=== PATIENT | male | born 1985 | race Caucasian/White ===

== ENCOUNTER 2024-12-05 19:55 | Emergency (ER) | payer OTHER, SELFPAY ==
[2024-12-05 20:07] VITALS: BP 162/98
[2024-12-05] MEDS: AUGMENTIN 875 MG/125 MG 1 TABLET PO (21:36)
[2024-12-05] MEDS: ADACEL 0.5 ML IM (21:36)
--- NOTE | 2024-12-05 22:11 | ED.SKININJ ---
HPI-Injury
General
Chief Complaint: Bite
Source: patient and spouse
Exam Limitations: none
Time Seen by Provider: 12/05/24 20:56
Nursing documentation reviewed up to this point in time: agreed with
History of Present Illness-Injury
Is this injury a work related problem?: No
Is pt an associate of [facility]?: No
Initial Injury comments:
39-year-old male past medical history of diabetes presenting to the emergency department today with concerns of dog bite to the left side of his face.
Past History
Past History
ED Past Medical History: IDDM and Psychiatric (Depression)
Social History
Tobacco: Non-smoker
Alcohol: Occasional
Drug: None
Personal: Single
Employment: Employed
Review of Systems
Review of Systems
Allergies reviewed?: Yes
All Other Systems: ROS reviewed and negative except as documented in HPI and ROS
Phy Exam
Physical Exam
Physical Exam:
GENERAL: Alert , in no apparent distress
EYE: pupils equal and reactive
NECK: Supple, no significant adenopathy.
ENT: o/p clr, mmm.
CARDIAC: Regular rate and rhythm .
LUNGS: Clear breath sounds bilaterally, no acute respiratory distress, no wheezes/rales/rhonchi
ABDOMEN: Soft, without focal tenderness, no r/g, no cvat
NEUROLOGICAL: Alert and oriented, no focal neuro deficits
SKIN: Laceration to the area just above the left upper lip no involvement of the dry mucous membrane does not cross the vermilion border L-shaped 3 cm in total length no foreign body seen warm and dry, skin intact.
MUSCULOSKELETAL: No edema, well perfused.
PSYCH: Normal and appropriate interaction.
Course
Orders/Labs/Results
Orders:
Orders
12/05/24 21:19
Amoxicillin 875 mg/Clav 125 mg [Augmentin 875 mg/125 mg] 1 tablet PO NOW STA
Tetanus/Diphth/Acelpertussis [Adacel] 0.5 ml IM .ONCE ONE
12/05/24 22:12
Bedside Glucose- Treatment ONCE
Vital Signs
Initial and Last Documented VS:
Initial Vital Signs
Pulse Resp BP Pulse Ox
94 18 162/98 98
12/05/24 20:07 12/05/24 20:07 12/05/24 20:07 12/05/24 20:07
Last Documented Vital Signs
Pulse Resp BP Pulse Ox
94 18 162/98 98
12/05/24 20:07 12/05/24 20:07 12/05/24 20:07 12/05/24 22:12
Procedures
Laceration Closure
Left Superior Lip:
Status of Wound: clean
Size of Wound in cm: 3
Description of Wound Edges: sharp
Preparation: cleaned with saline
Anesthesia: 1% Lidocaine with epi
Revision/Debridement: routine- no revision and irrigate-direct pressure
Wound exploration: explored to base- no FB
Type of Closure: single layer closure
Skin Closure Material: 5-0 prolene
Number of sutures: 2
MDM/Problems Addressed
MDM/Problems Addressed:
39-year-old male presenting to the emergency department today with concerns of a dog bite from his dog who is up-to-date with vaccinations when he was breaking up a fight between his other dog. Had a quick bite to his face. He is unsure what his
last tetanus shot was. Updated dose was given here. He was also immediately started on Augmentin. The area was cleaned thoroughly. Patient better partial closure was discussed with the patient we opted to do a loose approximation of the wound.
2 stitches placed he was advised for follow-up in 5 to 7 days for suture removal. Return precautions given for any evidence of infection.
*Pulse Oximetry
SaO2: 98
Oxygen Mode of Delivery: Room air
Patient hypoxic: no (98)
*Critical Care Note
Total Time (30-74mins, 75-104mins- exclusive of procedures): Not Applicable
ED Attending Note
-
Portions of this chart may have been created with voice recognition software.� Occasional wrong word or��sound alike� substitutions may have occurred due to the inherent limitations of voice recognition software.
Discharge Plan
Departure
Patient Disposition: Home (Routine Discharge)
Date of Disposition: 12/05/24
Time of Disposition: 22:24
Patient with high blood pressure during this ER visit?: No
Condition: Good
Covid-19: Not Applicable
Discharge Problem:
Dog bite of face
Instructions: Animal Bites (DC)
Prescriptions:
New
amoxicillin-pot clavulanate 875-125 mg tablet
1 tab PO BID 5 Days Qty: 10 0RF
No Action
insulin glargine [Basaglar KwikPen U-100 Insulin] 100 UNIT/ML insulin pen
36 unit SQ HS
gabapentin 600 MG tablet
600 mg PO TID
citalopram 20 MG tablet
20 mg PO DAILY
buspirone 10 MG tablet
10 mg PO BID
metformin 500 MG tablet extended release 24 hr
1,000 mg PO BID
varenicline tartrate [Chantix Continuing Month Box] 1 MG tablet
1 mg PO DAILY
Referrals:
Forrest Maciel MD [Family Provider, Family Practice]
Activity Restrictions/Additional Instructions:
You came to the emergency department today with concerns of a dog bite to your face. Please the prescribed antibiotic and keep the area clean. Please follow-up in 5 to 7 days for suture removal. Return for any worsening, new or concerning
symptoms.
Interventions
Interventions:
*Risk Screen - Suicide Last Done: 12/05/24 20:07
*General Assessment Last Done: 12/05/24 20:07
*Neglect/Abuse Screening Last Done: 12/05/24 21:17
*ED- Fall Risk Assessment Last Done: 12/05/24 21:17
*ED COVID-19 Vaccine History Last Done: 12/05/24 20:07
ED-Skin Assessment Last Done: 12/05/24 21:17
Discharge Date and Time
Print Language: [id number]
[2024-12-05 22:27] LABS: Glucose - Point of Care 251 mg/dl (70-99)
[2024-12-05 22:54] VITALS: BP 124/81
== END 2024-12-05 22:55 | disposition home or self-care (01) ==
LOC: EMR 19:55
PROVIDERS: EMERGENCY PHYSICIAN Emergency Medicine; FAMILY PHYSICIAN Family Medicine
DX: S01.85XA Open bite of other part of head, initial encounter (principal); W54.0XXA Bitten by dog, initial encounter; E11.9 Type 2 diabetes mellitus without complications; F32.A Depression, unspecified; Z23 Encounter for immunization; G71.00 Muscular dystrophy, unspecified; F41.9 Anxiety disorder, unspecified; Z79.4 Long term (current) use of insulin; Z88.6 Allergy status to analgesic agent
CPT/HCPCS: 12013; 82962; 90471; 90715; 99283